=== PATIENT | female | born 1960 | race Caucasian/White ===

== ENCOUNTER → 2020-12-31 | Outpatient (RCR) | payer OTHER ==
[~2020-12-31] MED LIST: ATORVASTATIN CA10 MG PO; ATORVASTATIN CA20 MG PO; CYMBALTA30 MG PO; MYRBETRIQ50 MG PO; OSPHENA PO; ZYRTEC10 MG PO
== END ==
LOC: ST 12-22 11:03
PROVIDERS: ATTEND Otolaryngology Otolaryngology/Facial Plastic Surgery
DX: R49.0 Dysphonia (principal); R47.89 Other speech disturbances

== ENCOUNTER 2021-01-14 11:00 | Outpatient (RCR) | payer OTHER | END 2021-01-30 | LOC: ST 11:00 | PROVIDERS: ATTEND Otolaryngology Otolaryngology/Facial Plastic Surgery | DX: R49.0 Dysphonia (principal); R47.89 Other speech disturbances ==

== ENCOUNTER 2021-02-25 11:00 | Outpatient (RCR) | payer OTHER | END 2021-03-02 | LOC: ST 11:00 | PROVIDERS: ATTEND Otolaryngology Otolaryngology/Facial Plastic Surgery | DX: R49.0 Dysphonia (principal); R47.89 Other speech disturbances ==

== ENCOUNTER 2021-03-12 11:04 | Outpatient (RCR) | payer OTHER | END 2021-04-01 | LOC: ST 11:04 | PROVIDERS: ATTEND Otolaryngology Otolaryngology/Facial Plastic Surgery | DX: R49.0 Dysphonia (principal); R47.89 Other speech disturbances ==